=== PATIENT | male | born 2000 | race Caucasian/White ===

== ENCOUNTER 2021-11-06 20:07 | Emergency (ER) | payer OTHER ==
[2021-11-06] MEDS ORDERED: Sodium Chloride 0.9% 10 ML Syringe FLUSH PRN (20:29)
[2021-11-06] MEDS ORDERED: Sodium Chloride 0.9% 1,000 ML IV SCH (20:45)
[2021-11-06] MEDS ORDERED: Levofloxacin 500 MG Tab PO STA (21:54)
[2021-11-06] MEDS ORDERED: Potassium Chloride 20 MEQ Tab.ER PO STA (22:11)
[2021-11-06 22:30] LABS: CORONAVIRUS COVID-19 NAA NEGATIVE (NEGATIVE)
[2021-11-06 22:56] VITALS: BP 128/71; PULSE 97
== END 2021-11-06 22:22 | disposition home or self-care (01) ==
LOC: FB.ED 20:07
DX: D70.9 Neutropenia, unspecified (principal); R50.81 Fever presenting with conditions classified elsewhere; C49.9 Malignant neoplasm of connective and soft tissue, unspecified; Z88.1 Allergy status to other antibiotic agents; Z72.0 Tobacco use; Z20.822 Contact with and (suspected) exposure to COVID-19
CPT/HCPCS: 0240U; 36415; 71045; 80053; 81001; 83605; 85025; 86140; 87040; 99283; 99283-25; A9270-GY